=== PATIENT | male | born 1990 | race Caucasian/White ===

== ENCOUNTER → 2017-04-01 | Outpatient (CLI) | payer OTHER ==
[~2017-04-01] MED LIST: ASPI81TA85 PO; BUPR8SUB SL; IPRAINH INH; SYMB16INH INH; VENTAER IN
--- NOTE | 2017-04-01 21:10 | ECHO ---
DATE OF PROCEDURE: 04/01/2017 REFERRING PHYSICIAN: Dr. Williams Doss INDICATION: Syncope. HEIGHT: 69 inches. WEIGHT: 185 pounds. 2D MEASUREMENTS: Left atrium: 3.9 cm Aortic root: 2.6 cm Left ventricle diastole: 6.1 cm Ventricular septum: 0.70 cm Posterior wall: 1.02 cm LVOT: 2.3 cm Inferior vena cava: 1.4 cm (more than 50% respiratory variation). DOPPLER MEASUREMENTS: Aortic valve velocity: 143 cm/s LVOT velocity: 96.3 cm/s LVOT VTI: 18.7 cm Very mild mitral regurgitation. Mitral E velocity: 99.7 cm/s Mitral A velocity: 77.5 cm/s Mitral deceleration time: 183 ms Very mild tricuspid regurgitation. Estimated right ventricle systolic pressure: 21-26 mmHg assuming a right atrial pressure of 5-10 mmHg. Pulmonary artery systolic pressure: 19 mmHg by pulmonary acceleration time method. MITRAL ANNULAR TISSUE DOPPLER: E prime septal: 8.4 cm/s E prime lateral: 11.0 cm/s DESCRIPTION: Rhythm was sinus. Image quality was adequate. This is a 2D, M-mode, color flow Doppler and pulse wave Doppler examination and included mitral annular tissue Doppler. No pericardial effusion. CONCLUSIONS: 1. Mildly dilated left ventricle with progressive hypokinesis towards the apex, such that the apical portion was severely hypokinetic and the basal portion was mildly hypokinetic. Normal left ventricular (LV) wall thickness. Severe reduction in overall LV systolic function. Left ventricular ejection fraction (LVEF) 25-30% by visual estimate. Normal LV diastolic function. 2. Otherwise normal echocardiogram Doppler. ADDITIONAL COMMENTS AND RECOMMENDATIONS: Nonischemic cardiomyopathy versus takotsubo cardiomyopathy. Recommend cardiology referral.
== END ==
LOC: M CARPUL 11:23
PROVIDERS: ATTEND Internal Medicine Interventional Cardiology
DX: R07.9 Chest pain, unspecified (principal); R55 Syncope and collapse; R94.31 Abnormal electrocardiogram [ECG] [EKG]

== ENCOUNTER 2017-04-03 12:04 | Emergency (ER) | payer OTHER ==
[~2017-04-03] VITALS: Ht 175.3 cm; Wt 84.1 kg
[2017-04-03] MEDS ORDERED: VENTAER IN (12:23)
[2017-04-03] MEDS ORDERED: BUPR8SUB SL (12:23)
[2017-04-03] MEDS ORDERED: IPRAINH INH (12:23)
[2017-04-03] MEDS ORDERED: ASPI81TA85 PO (12:23)
[2017-04-03] MEDS ORDERED: SYMB16INH INH (12:23)
[2017-04-03] MEDS ORDERED: ASPIRIN 81 MG CHEW TABLET PO ONE (13:00)
[2017-04-03 13:10] LABS: BASO % 0.5 % (0.0-1.0); EOS # 0.3 10^3/uL (0.0-0.50); IMMATURE GRANULOCYTE % 0.2 % (0-0); LYMPH # 1.9 10^3/uL (1.5-6.5); LYMPH % 21.4 % (24.0-44.0); MEAN CORPUSCULAR HEMOGLOBIN 30.6 pg (27.0-33.0); MEAN CORPUSCULAR HGB CONC 33.9 g/dl (32.0-36.5); MEAN CORPUSCULAR VOLUME 90.3 fl (80.0-96.0); MONO # 0.7 10^3/uL (0.0-0.8); MONO % 8.1 % (0.0-5.0); NEUTROPHILS # 5.8 10^3/uL (1.8-7.7); NEUTROPHILS % 66.8 % (36.0-66.0); PLATELET COUNT, AUTOMATED 187 10^3/uL (150-450); RED CELL DISTRIBUTION WIDTH 12.7 % (11.5-14.5); WHITE BLOOD COUNT 8.7 10^3/uL (4.0-10.0)
[2017-04-03 13:39] LABS: ALBUMIN 4.1 GM/DL (3.2-5.2); ALBUMIN/GLOBULIN RATIO 1.14 (1.00-1.93); ALKALINE PHOSPHATASE 94 U/L (45-117); ALT/SGPT 18 U/L (12-78); ANION GAP 6 MEQ/L (8-16); AST/SGOT 20 U/L (7-37); BILIRUBIN,DIRECT < 0.1 MG/DL (0.0-0.2); BILIRUBIN,TOTAL 0.2 MG/DL (0.2-1.0); BLOOD UREA NITROGEN 6 MG/DL (7-18); CALCIUM LEVEL 8.5 MG/DL (8.5-10.1); CARBON DIOXIDE LEVEL 30 MEQ/L (21-32); CHLORIDE LEVEL 106 MEQ/L (98-107); CREATININE FOR GFR 0.82 MG/DL (0.70-1.30); GLOMERULAR FILTRATION RATE > 60.0 (>60); GLUCOSE, FASTING 98 MG/DL (70-105); POTASSIUM SERUM 4.1 MEQ/L (3.5-5.1); SODIUM LEVEL 142 MEQ/L (136-145); TOTAL PROTEIN 7.7 GM/DL (6.4-8.2)
[2017-04-03 14:24] LABS: METHADONE URINE NEGATIVE (NEGATIVE)
[2017-04-03 14:34] VITALS: BP 120/67
--- NOTE | 2017-04-03 20:11 | ECGEPIP ---
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
--- NOTE | 2017-04-04 07:59 | REP ---
Portable chest, 01:04 p.m., single AP view, the patient upright: There are no comparisons. The lung thorne are clear. The cardiac size is normal. The yadiel, mediastinum, and bony thorax are unremarkable. Impression: Negative portable chest. Signed by El Levine MD 04/04/2017 07:51 A
== END 2017-04-03 14:37 | disposition short-term general hospital (02) ==
LOC: M ED 12:04
DX: R55 Syncope and collapse (principal); I50.20 Unspecified systolic (congestive) heart failure; I25.5 Ischemic cardiomyopathy; Z79.899 Other long term (current) drug therapy; Z88.0 Allergy status to penicillin; F17.210 Nicotine dependence, cigarettes, uncomplicated